=== PATIENT | male | born 1940 | race Caucasian/White ===

== ENCOUNTER → 2024-02-27 12:41 | Outpatient (REF) | payer OTHER, SELFPAY | LOC: RAD 12:41 | PROVIDERS: ATTENDING PHYSICIAN Surgery Vascular Surgery; FAMILY PHYSICIAN Family Medicine | DX: I65.23 Occlusion and stenosis of bilateral carotid arteries (principal); I77.1 Stricture of artery | CPT/HCPCS: 93880 ==

== ENCOUNTER → 2024-05-25 11:05 | Outpatient (REF) | payer OTHER, SELFPAY | LOC: DHCBC/DCA 11:05 | PROVIDERS: ATTENDING PHYSICIAN Internal Medicine; FAMILY PHYSICIAN Family Medicine | DX: Z01.810 Encounter for preprocedural cardiovascular examination (principal); I65.23 Occlusion and stenosis of bilateral carotid arteries; I25.10 Atherosclerotic heart disease of native coronary artery without angina pectoris; I45.10 Unspecified right bundle-branch block; R07.89 Other chest pain | CPT/HCPCS: 78452; 93017; A9500 ==

== ENCOUNTER → 2024-05-28 08:11 | Outpatient (REF) | payer OTHER, SELFPAY | LOC: RCS 08:11 | PROVIDERS: ATTENDING PHYSICIAN Internal Medicine; FAMILY PHYSICIAN Family Medicine | DX: Z01.810 Encounter for preprocedural cardiovascular examination (principal); I65.23 Occlusion and stenosis of bilateral carotid arteries; I25.10 Atherosclerotic heart disease of native coronary artery without angina pectoris; I45.10 Unspecified right bundle-branch block; R07.89 Other chest pain | CPT/HCPCS: 93306 ==

== ENCOUNTER 2024-06-02 06:17 | Inpatient (IN) | payer OTHER, SELFPAY ==
[2024-05-28 10:55] LABS: % Basophils 0.7 % (0-2); % Eosinophils 3.3 % (0-6); % Immature Granulocytes 0.3 % (0-0.5); % Lymphocytes 21.7 % (20.5-51.1); % Monocytes 6.8 % (1.7-9.3); % Neutrophils 67.2 % (42.2-75.2); Absolute Eosinophils 0.2 10^3/uL (0-0.7); Absolute Lymphocytes 1.3 10^3/uL (1.2-3.4); Absolute Monocytes 0.4 10^3/uL (0.1-0.6); Absolute Neutrophils 3.9 10^3/uL (1.4-6.5); Hematocrit 37.3 % (39.0-52.0); Hemoglobin 12.7 g/dL (13.0-18.0); Mean Corpuscular Hgb 30.9 pg (27.0-31.0); Mean Corpuscular Volume 90.8 fL (80.0-94.0); Mean Platelet Volume 9.3 fL (7.4-10.4); Nucleated Red Blood Cells % 0 % (-); Platelet Count 209 10^3/uL (130-400); Red Blood Cell Count 4.11 10^6/uL (4.70-6.10); Red Cell Dist. Width 13.2 % (11.5-14.5); White Blood Cell Count 5.8 10^3/uL (4.8-10.8)
[2024-05-28 11:11] LABS: Blood Urea Nitrogen 25 mg/dl (9-20); Calcium 9.6 mg/dl (8.4-10.2); Carbon Dioxide 28 mmol/L (22-30); Chloride 103 mmol/L (98-107); Glucose 96 mg/dl (70-99); Potassium 4.6 mmol/L (3.5-5.1); Sodium 141 mmol/L (135-145); eGFR > 60.00
[2024-05-28 11:12] LABS: INR 0.99; PT 12.9 Sec (11.4-14.6)
[2024-05-28 11:13] LABS: APTT 29.3 Sec (23.4-35.0)
[2024-06-02] VITALS (10 sets, daily range): BP systolic 81–180; BP diastolic 68–73; BMI 29.1
[2024-06-02] MEDS: BACTROBAN NASAL 1 GRAM NASAL (06:53)
[2024-06-02] MEDS: NSS 500 IV (06:53)
[2024-06-02] MEDS: PERIDEX 0.12% ORAL RINSE 15 ML PO (06:53)
--- NOTE | 2024-06-02 07:13 | W.SUR.PREOP ---
Pre-Operative Surgical Note
-
I have examined this patient prior to the performance of the scheduled procedure.
The patient's condition is unchanged from the time of the current History and
Physical and the patient is able to undergo the scheduled procedure.
--- NOTE | 2024-06-02 10:04 | W.SUR.POST ---
Surgical Immediate Post Op
Note
Pre Op Diagnosis: Carotid stenosis
Post Op Diagnosis: Same
Procedure Performed: Left carotid endarterectomy with bovine pericardial patch angioplasty and EEG monitoring
Primary Surgeon: Mauro SCHWARTZ
Secondary Surgeons: Tarun MANRIQUE
Anesthesia: General
Estimated Blood Loss:
Fluids: See anesthesia flowsheet
Drains/Shunts: None
Specimens/Cultures: Carotid plaque
Doppler/Duplex/Angio (Y/N): Y
Complications: None
Operative Findings: Woke from anesthesia moving all extremities
--- NOTE | 2024-06-02 10:28 | CON.INTV ---
Consultation
Consultation Request
Date/Time Consultation Requested: 06/02/2024952
Date/Time Consultation Performed: 06/02/2024 - 101
Requesting Provider: BURTON Armas
Performing Provider: Juancarlos Canales MD
Reason for Consultation: s/p L-CEA
Medical History
-
Chief Complaint: Elective left CEA
History of Present Illness:
83-year-old male former tobacco smoker with a past medical history of bilateral carotid artery stenosis, adenomatous colonic polyps, ophthalmic migraines, hyperlipidemia, impaired fasting glucose, GERD, Peyronie's disease, left knee osteoarthritis
and spinal stenosis who presents with left carotid endarterectomy. Patient known to vascular surgery service with last visit on 04/20/[address] Wade. Patient has extensive atherosclerotic plaque burden throughout his aortic arch great vessels
with left subclavian stenosis. There is 90% stenosis in the left internal carotid at the distal bulb. Surgical revascularization was discussed and he was recommended for a left carotid endarterectomy. Risks and benefits of vascular intervention
were discussed, and today he underwent a left carotid endarterectomy with bovine pericardial patch angioplasty with intraoperative EEG/SSEP monitoring. There were no immediate complications and he was transferred to the ICU for further care.
Epidemiology Internship services consulted for additional management/recommendations.
When I saw the patient, he was resting in bed in no acute distress. Heart rate 81, BP via right radial A-line: 129/59, saturating 95% on 2 L/min, and BP via NIBP: 81/68. He feels well, has no complaints. Denies shortness of breath, chest pain,
ROMERO, abdominal pain, nausea, fevers or chills.
PMHx: Bilateral carotid artery stenosis, history of adenomatous colon polyps, diverticulosis, ophthalmic migraines, hyperlipidemia, nephrolithiasis, impaired fasting glucose, GERD, Peyronie's disease, left knee OA, spinal stenosis, history of
fractured ribs x2 (left )
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
Past Medical History
Past Medical History: Other (Above as per HPI)
Past Surgical History: Other (Above as per HPI)
Social History
Tobacco: Former Smoker (Quit in September 1999; prior 1-2 PPD x 15 years (total and he quit for a period of time))
Alcohol: Occasional
Drug: None
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
Family History
Family History: CAD (Father) and Other (Mother: Glaucoma)
Allergies / Home Medications
Allergies
Allergy/AdvReac Type Severity Reaction Status Date / Time
bupropion Allergy Mild Rash Verified 06/02/24 06:31
nicotine Allergy Mild Rash Verified 06/02/24 06:31
Home Medications
�Medication �Instructions �Recorded �Confirmed �Last Taken �Type
aspirin 81 mg tablet,delayed 81 mg PO DAILY Blood clot 03/26/20 06/02/24 06/01/24 10:30 History
release prevention/tx
rosuvastatin 40 mg tablet (Crestor) 40 mg PO DAILY High cholesterol 03/26/20 06/02/24 06/01/24 10:30 History
acetaminophen 500 mg tablet 500 mg PO Q4HPRN PRN pain 04/06/20 06/02/24 05/31/24 23:00 History
(Tylenol Extra Strength)
diclofenac sodium 50 mg 50 mg PO BID PRN PAIN 05/26/24 06/02/24 06/01/24 10:30 History
tablet,delayed release
icosapent ethyl 1 gram capsule 2 g PO DAILY High Cholesterol 05/26/24 06/02/24 06/01/24 10:30 History
(Vascepa)
valsartan 320 mg tablet 320 mg PO DAILY High Cholesterol 05/26/24 06/02/24 06/01/24 10:30 History
Review of Systems
-
History Source: Patient
All other systems: Negative unless noted
Vitals / Labs / Diagnostic Testing
Vital Signs
Temp Pulse Resp BP Pulse Ox
97.8 F 68 14 103/71 95
06/02/24 12:10 06/02/24 15:15 06/02/24 15:15 06/02/24 13:31 06/02/24 15:15
Lab Data
06/02/24 11:22
06/02/24 11:22
Laboratory Results
06/02/24
11:22
PT 13.6
INR 1.03
APTT 25.9
Diagnostic Testing:
Physical Exam
-
HEENT: Normocephalic and Anicteric
Cardiovascular: S1/S2, Murmur (LURDES, heard best at RUSB with radiation to carotid) and Peripheral Edema (negative)
Respiratory: Clear, Wheeze (negative), Rales (negative), Rhonchi (negative) and Non-Labored Respirations
GI: Soft, Non Distended, Non Tender and Normal Bowel Sounds
Neurology: AO x 3 and Tremors (negative)
Skin: Warm and Dry
General: Respiratory Distress (negative), Comfortable, Chills (negative) and Sweats (negative)
Assessment
-
Assessment: 83-year-old male former tobacco smoker with a past medical history of bilateral carotid artery stenosis, adenomatous colonic polyps, ophthalmic migraines, hyperlipidemia, impaired fasting glucose, GERD, Peyronie's disease, left knee
osteoarthritis and spinal stenosis who presents with left carotid endarterectomy. Patient known to vascular surgery service with last visit on 04/20/[address] Wade. Patient has extensive atherosclerotic plaque burden throughout his aortic arch
great vessels with left subclavian stenosis. There is 90% stenosis in the left internal carotid at the distal bulb. Surgical revascularization was discussed and he was recommended for a left carotid endarterectomy. Risks and benefits of vascular
intervention were discussed, and 06/02/2024 he underwent a left carotid endarterectomy with bovine pericardial patch angioplasty with intraoperative EEG/SSEP monitoring. There were no immediate complications and he was transferred to the ICU for
further care. Epidemiology Internship services consulted for additional management/recommendations.
Chronic conditions [employer]: Bilateral carotid artery stenosis, history of adenomatous colon polyps, diverticulosis, ophthalmic migraines, hyperlipidemia, nephrolithiasis, impaired fasting glucose, GERD, Peyronie's disease, left knee OA, spinal stenosis,
history of fractured ribs x2 (left )
Impression:
#Critical left carotid artery stenosis s/p left carotid endarterectomy with bovine pericardial patch angioplasty and intraoperative EEG/SSEP monitoring (POD #0)
#Leukocytosis � likely reactive
#Chronic anemia
#Former tobacco smoker (quit about >24 years ago with >[id number] Hx)
Plan:
Postoperative surgical intensive care unit monitoring
Supplemental oxygen as needed to maintain SpO2 >90-94%
prn nebulized bronchodilators
Incentive spirometry encouraged 10x per hour for at least 4 hrs a day
Aspiration precautions
Pain control
Neuro and vascular checks per protocol
Maintain MAP>65
Replete electrolytes with K>4, Mg>2
Maintain euglycemia with goal BG 140-180
Vascular surgery following-correspondence and operative notes reviewed
Transfuse blood products as needed to keep Hb>7g/dL, and plt>50k (given post-operative status)
DVT prophylaxis
Early nutrition
Early mobilization
Critical care statement: A total of 44 minutes of critical care time was provided for this patient today. This includes management of unstable vital signs, evaluation of the patient at bedside, reviewing the patient's pertinent medical records
including radiographs, microbiology, laboratory evaluations, and discussion with primary team, consultants, pharmacy, nutrition, physical therapy, case management, charge nurse, critical care nursing, and respiratory therapy.
--- NOTE | 2024-06-02 11:15 | OR.RPT ---
Operative Report
Operative Report
PROCEDURE DATE: 06/02/2024
Preoperative diagnosis: Critical left carotid artery stenosis, asymptomatic.
Postoperative diagnosis: Same
Procedure: Left carotid endarterectomy with bovine pericardial patch angioplasty and intraoperative EEG/SSEP monitoring.
Surgeon: Mauro
Shrinker: Tangela Mcneil STONE CARRIAGE OPERATOR, required for all aspects of procedure including assistance with traction/countertraction, following a suture line, assistance with closure.
Complications: None
Anesthesia: General
Indications for procedure:
Critical left carotid artery stenosis. Asymptomatic. Severe elevated velocities on ultrasound. Recommended revascularization for stroke prevention. Risk/benefits/alternatives all fully discussed. Patient understood all wish to proceed.
Description of procedure:
Patient was identified brought to the operating room placed on the table in supine position. After the adequate administration of anesthesia and perioperative antibiotics he was prepped and draped in the standard surgical fashion. A standard
preoperative timeout was undertaken and everybody was in agreement the plan. A standard longitudinal incision was made in the left neck that was carried through the skin subcutaneous tissue. Using the electrocautery dissection was carried through
the platysma muscle layer and then alongside the anterior medial border of the sternocleidomastoid muscle. Then using a combination of sharp dissection with the Metzenbaum scissors and electrocautery I dissected along the anterior medial border of
the internal jugular vein. The common facial vein branch was ligated between silk ties and then divided. An additional smaller proximal crossing venous branch was ligated and divided between silk ties. I then deepened my retraction. The common
carotid artery was identified and carefully dissected away from the surrounding structures take great care to avoid any injury to the structures. A vessel loop was passed around it which was double looped, but not yet tightened. Note the vagus
nerve was seen in its usual location posterior lateral to the common carotid artery, and was protected from harm's way. I then continued my dissection up the common carotid artery to the bulb staying only on the anterior surface of the carotid
artery. Then I carried the dissection up to the internal carotid artery and then to the distal internal carotid artery. Notes, based on the CT scan I knew I had to dissect at least 2.5 to 3 cm distal to the origin of the internal carotid artery
due to significant plaque that extended up. I finally identified where it was soft and carefully circumferentially dissected the internal carotid artery with minimal mobilization and passed a vessel loop around it at this location. Note the
hypoglossal nerve was preserved from harm's way. The patient was given an appropriate dose of heparin 8000 units (and then an additional 1000 units was given). Next I dissected the anterior surface of the external carotid artery and superior
thyroid branches. These were then carefully circumferentially dissected with minimal mobilization and vessel loops passed around these which were double looped but not yet tightened. After 3 minutes of heparin circulation time and confirmation of
optimization of the blood pressure with my anesthesiology colleagues, I clamped the distal internal carotid artery where it was soft. There was no immediate EEG or SSEP changes. After 1 minute of test clamp time there was no changes noted.
Therefore at this point, the vessel loops on the external carotid artery and superior thyroid branches were tightened and the common carotid artery was clamped where it was soft proximally. An arteriotomy was made on the common carotid artery with
an 11 blade and extended using a [place] scissor. I extended the arteriotomy onto the mid to distal internal carotid artery. There was hard calcified, but friable type plaque extensively noted at the bifurcation extending onto the internal carotid
artery for a couple centimeters. It resulted in a severe stenosis. A [place] was then used to endarterectomized the plaque. An endarterectomy plane was created, and the plaque was then endarterectomized. Distally I feathered the plaque out to a
nice clean endpoint in the distal internal carotid artery. Next I endarterectomized the intima back to normal intima in the common carotid artery, and the intima was cut flush there. I then grasped the plaque and everted plaque out of the origin
of the external carotid artery. The plaque was then sent off for specimen. The origin of the external carotid artery was carefully visualized and any fine debris were removed with fine forceps. Proximal and distal endpoints were then carefully
inspected. Any fine debris was removed with fine forceps, and the intima was noted to be nicely adherent proximally and distally. Next any fine debris were removed throughout the endarterectomy bed with fine forceps. Three interrupted 7-0 Prolene
tacking sutures were placed to tack the distal endpoint (one on the anterior wall, and 2 posteriorly). I then flushed heparinized saline. I was very satisfied. Then, I used a bovine pericardial patch to sew a patch angioplasty with a running 6-0
Prolene suture. Prior to completing and tying down my suture line, I backbled sequentially each branch and reclamped each branch prior to unclamping the next branch. I then irrigated with heparinized saline. Then I completed and tied down my
suture line. We then restored flow in the common carotid and external carotid arteries. Finally, we released flow in the internal carotid artery. There was excellent pulsatile flow in all 3 vessels. There was an excellent Doppler signal in the
internal carotid artery distal to the patch with a good normal low resistance Doppler signal. There was a good Doppler signal in the external carotid artery as well. A couple 6-0 Prolene [id number] sutures were placed along any bleeding points
along the suture line. Protamine was given to reverse the heparin. Hemostasis was completely achieved. We then irrigated and confirmed full hemostasis. We then closed in layers with 2-0 Vicryl layer to reapproximate the sternocleidomastoid
muscle, followed by 3-0 Vicryl platysma muscle running layer, followed by 4-0 Monocryl subcuticular stitch. Dermabond was applied. The patient tolerated procedure well. He awoke moving all extremities to command with tongue in the midline.
[2024-06-02 11:35] LABS: Hematocrit 33.5 % (39.0-52.0); Hemoglobin 11.6 g/dL (13.0-18.0); Mean Corp Hgb Conc. 34.6 g/dL (33.0-37.0); Mean Corpuscular Hgb 29.7 pg (27.0-31.0); Mean Corpuscular Volume 85.7 fL (80.0-94.0); Mean Platelet Volume 8.6 fL (7.4-10.4); Platelet Count 169 10^3/uL (130-400); Red Blood Cell Count 3.91 10^6/uL (4.70-6.10); Red Cell Dist. Width 13.2 % (11.5-14.5); White Blood Cell Count 11.7 10^3/uL (4.8-10.8)
[2024-06-02 11:46] LABS: INR 1.03; PT 13.6 Sec (11.4-14.6)
[2024-06-02 11:47] LABS: APTT 25.9 Sec (23.4-35.0)
[2024-06-02 11:50] LABS: Blood Urea Nitrogen 23 mg/dl (9-20); Calcium 8.6 mg/dl (8.4-10.2); Carbon Dioxide 25 mmol/L (22-30); Chloride 102 mmol/L (98-107); Estimated Creatinine Clearance 48 ml/min; Glucose 146 mg/dl (70-99); Potassium 4.1 mmol/L (3.5-5.1); Sodium 137 mmol/L (135-145); eGFR > 60.00
[2024-06-02] MEDS: NSS 1000 IV (13:08)
[2024-06-02] MEDS: NITROGLYCERIN PREMIX 250 IV (13:09)
--- NOTE | 2024-06-02 13:30 | PTCARENOTE ---
Pt arrived to Rm 3365 at 1235 via bed from PACU s/p Lt CEA. Pt awake and talkative on arrival. Tongue midline, smile symmetrical, landscape painter equal and strong. Communicating and following all commands appropriately. Received on O2 at 2l/min w/ POx 94-96%.
Denies SOB. Reports 2/ Lt neck 'ache', declining offered prn ordered pain med. Lt neck incision noted; well approximated w/ surgical adhesive present. No swelling or ecchymosis noted. Ice pack x 20min per order. Rt radial [place] transduced, leveled
and zero-balanced. IVF of NS started infusing at 80ml/hr per order. PT's SBP in 170-180's. Nitro gtt started per order (see worklist intervention) to maintain SBP 100-165. Physical assessment completed as documented. Pt provided w/ clear liquids.
Using urinal independently to void. Pt's in room to visit- updated on pt's present condition and plan of care. Pt's clergy in room to visit.
--- NOTE | 2024-06-02 13:41 | CHAP ---
Msgr. Ministerio Badillo of [facility] in [place] anointed [place], gave him an [place], and Holy Communion.
[2024-06-02] MEDS: ROXICODONE 5 MG PO (14:48)
--- NOTE | 2024-06-02 15:37 | PTCARENOTE ---
Pt continues to rest quietly although reports increase in discomfort from Lt neck incision. No change in appearance of incision. Ice pack applied x20 min and pt provided ordered Oxycodone at request (see MAR). Pt tolerating clear liquids w/o
complication. Diet advanced to Chol. lowering and pt assisted in ordering lunch. No additional changes from previous assessment findings. Ntg gtt per worklist intervention. went home for the afternoon.
[2024-06-02] MEDS: HEPARIN 5000 UNITS SC ×2 (16:00→23:16)
--- NOTE | 2024-06-02 16:29 | PTCARENOTE ---
Pt sat up in bed to eat ordered lunch and visit w/ friend- SBP 180-200's w/ adjustment made to Ntg gtt (see worklist intervention) to keep SBP <165. Pt reports 'feel quite comfortable' since previously administered Oxycodone. Neuro unchanged. TT to
Dez KHANNP re: increased Ntg requirement to attempt to keep SBP <165. Dez KHANNP and Tatyana MANRIQUE to bedside to evaluate pt. Order for Cardene gtt received. Pt's daughter in room to visit pt.
[2024-06-02] MEDS: CARDENE 200 IV (16:38)
--- NOTE | 2024-06-02 22:58 | PTCARENOTE ---
1999: Handoff report received from off going RN.Dual RN neuro checks and gtt reconciliation completed. Assessment as noted on the worklist.Patient received on cardene gtt at 5 mg/hr and NS @ 80 ml/hr. Right radial arterial line flushed and
calibrated. SBP 95-97. Cardene gtt placed on hold and SBP improved to 110-140s. Patient is AAOx4 and able to make his needs known. Denies pain at this time. Plan of care for the shift reviewed with the patient. questions encouraged and answered.
The patient had concerns regarding is oxygenation. Sinus rhythm on the monitor with 1st degree AVB and BBB. Afebrile. Clear breath sounds. Sp2 at 95% on 2L/nc. +BS. Patient at 95% of his dinner tray. The patient voids via urinal. Declines mouth care
at this time. PT repositions himself.
[2024-06-02] MEDS: TYLENOL 650 MG PO (23:15)
[2024-06-03] VITALS: BP 99/80
[2024-06-03] MEDS: NSS 1000 IV (00:12)
--- NOTE | 2024-06-03 00:19 | PTCARENOTE ---
Patient reassessed. Remains AAOx4 and able to make his needs known. Pain 0/10 since Tylenol administration. Neuro assessment as document. Left CEA site is cdi with surgical glue. No hematoma. Mild bruising. Cardene gtt remains off at this time. All
needs are met. Call yoon and personal belonging are within reach.
--- NOTE | 2024-06-03 02:27 | PTCARENOTE ---
The patient utilized the urinal to void and his SBP increased to the 180s. Pt repositioned and arterial line calibrated with good waveform. The patient denied having pain. Cardene gtt restarted at 2.5 mg/hr.
[2024-06-03 04:00] VITALS: BP 96/66
[2024-06-03 04:19] VITALS: BP 104/71
[2024-06-03 04:19] LABS: Hematocrit 33.7 % (39.0-52.0); Hemoglobin 11.5 g/dL (13.0-18.0); Mean Corp Hgb Conc. 34.1 g/dL (33.0-37.0); Mean Corpuscular Hgb 30.7 pg (27.0-31.0); Mean Corpuscular Volume 89.9 fL (80.0-94.0); Platelet Count 179 10^3/uL (130-400); Red Blood Cell Count 3.75 10^6/uL (4.70-6.10); Red Cell Dist. Width 12.8 % (11.5-14.5); White Blood Cell Count 10.4 10^3/uL (4.8-10.8)
[2024-06-03 04:29] LABS: INR 0.98
[2024-06-03 04:30] LABS: APTT 24.3 Sec (23.4-35.0)
[2024-06-03 04:44] LABS: Blood Urea Nitrogen 21 mg/dl (9-20); Calcium 8.8 mg/dl (8.4-10.2); Carbon Dioxide 23 mmol/L (22-30); Chloride 105 mmol/L (98-107); Estimated Creatinine Clearance 48 ml/min; Glucose 131 mg/dl (70-99); Potassium 4.4 mmol/L (3.5-5.1); Sodium 138 mmol/L (135-145); eGFR > 60.00
--- NOTE | 2024-06-03 04:50 | PTCARENOTE ---
Patient reassessed. neuro assessment as [place]. Denies pain. VSS. Patient cleansed with CHG wipes and pads changed. No further changes.
[2024-06-03 06:00] VITALS: BMI 29.9
[2024-06-03] MEDS: CARDENE 200 IV (06:33)
[2024-06-03] MEDS: ASPIR LOW (ENTERIC COATED) 81 MG PO (07:39)
[2024-06-03] MEDS: DIOVAN 320 MG PO (07:39)
[2024-06-03] MEDS: CRESTOR 40 MG PO (07:39)
[2024-06-03] MEDS: HEPARIN 5000 UNITS SC (07:39)
--- NOTE | 2024-06-03 07:56 | W.PN.VS ---
Today's Communication / Plan
-
Seen and assessed with Dr Wade
Assessment/Plan
-
POD 1 L CEA
Plan:
-DC mary jane
-DC IVF
-PO meds
-Diet
-OOB/ambulate
-Likely DC later today
Subjective Data
-
Date of Service: June 03, 2024
Pt seen at bedside this am with Dr Wade. Pt offers no complaints at this time. No events overnight. Cardene being weaned down at this time.
Objective Data
-
Vital Signs
Temp Pulse Resp BP Pulse Ox
97.7 F 67 16 140/58 96
06/03/24 07:46 06/03/24 07:45 06/03/24 07:45 06/03/24 07:39 06/03/24 07:45
Intake and Output
06/02/24 06/03/24 06/04/24
06:59 06:59 06:59
Intake Total 3426.0 / 3531.0 105 / 105
Output Total 2730 / 3030 300 / 300
Balance 696.0 / 501.0 -195 / -195
Intake:
Oral fluids 1680 / 1680
IV fluids (Total) 1746.0 / 1851.0 105 / 105
Cardene 177.5 / 202.5 25 / 25
NSS 1540 / 1620 80 / 80
Nitro 28.5 / 28.5
Output:
Urine, Voided 2730 / 3030 300 / 300
Lab Results
06/03/24 04:02
06/03/24 04:02
Calcium 8.8 mg/dl (8.4-10.2) 06/03/24 04:02
Physical Exam
-
AAOx3
No tachypnea on RA
No tachycardia
Abd soft
Neck site c/d/i, no hematoma or drainage noted
Moves all extremities to command
Tongue midline
--- NOTE | 2024-06-03 08:10 | W.PN.INTV ---
Today's Communication / Plan
Recommendations
Up OOB as tolerated
Pain control
Encourage incentive spirometer
Goal SpO2 >90-94%
Continue with outpatient follow-up with vascular surgery and his PCP
Patient is being prepared for discharge home today. Professor Of Legal Studies/Pulmonary service will now sign off. Please reconsult if there are any additional questions/concerns, or if patient's respiratory status deteriorates.
Assessment
-
Assessment: 83-year-old male former tobacco smoker with a past medical history of bilateral carotid artery stenosis, adenomatous colonic polyps, ophthalmic migraines, hyperlipidemia, impaired fasting glucose, GERD, Peyronie's disease, left knee
osteoarthritis and spinal stenosis who presents with left carotid endarterectomy. Patient known to vascular surgery service with last visit on 04/20/[address] Wade. Patient has extensive atherosclerotic plaque burden throughout his aortic arch
great vessels with left subclavian stenosis. There is 90% stenosis in the left internal carotid at the distal bulb. Surgical revascularization was discussed and he was recommended for a left carotid endarterectomy. Risks and benefits of vascular
intervention were discussed, and 06/02/2024 he underwent a left carotid endarterectomy with bovine pericardial patch angioplasty with intraoperative EEG/SSEP monitoring. There were no immediate complications and he was transferred to the ICU for
further care. Professor Of Legal Studies services consulted for additional management/recommendations.
Chronic conditions CLINICAL PHARMACIST: Bilateral carotid artery stenosis, history of adenomatous colon polyps, diverticulosis, ophthalmic migraines, hyperlipidemia, nephrolithiasis, impaired fasting glucose, GERD, Peyronie's disease, left knee OA, spinal stenosis,
history of fractured ribs x2 (left )
Impression:
#Critical left carotid artery stenosis s/p left carotid endarterectomy with bovine pericardial patch angioplasty and intraoperative EEG/SSEP monitoring (POD #1)
#Leukocytosis � likely reactive and is now resolved
#Chronic anemia
#Former tobacco smoker (quit about >24 years ago with >[id number] [id number])
Plan:
Postoperative surgical intensive care unit monitoring
Maintain SpO2 >90-94%
prn nebulized bronchodilators
Incentive spirometry encouraged 10x per hour for at least 4 hrs a day
Aspiration precautions
Pain control
Neuro and vascular checks per protocol
Maintain MAP>65
Replete electrolytes with K>4, Mg>2
Maintain euglycemia with goal BG 140-180
Vascular surgery following-correspondence and operative notes reviewed
Transfuse blood products as needed to keep Hb>7g/dL, and plt>50k (given post-operative status)
DVT prophylaxis
Early nutrition
Early mobilization
Patient is being prepared for discharge home today. Professor Of Legal Studies/Pulmonary service will now sign off. Thank you for allowing us to be involved in the care of this patient. Please reconsult if there are any additional questions/concerns, or if
patient's respiratory status deteriorates.
Total time spent today was 41 minutes for this encounter. Time includes reviewing laboratory test/imaging results, reviewing pertinent medical records, obtaining and reviewing medical history, performing an appropriate exam, ordering medications,
tests and procedures. Time also includes documentation of this encounter, coordinating patient care and communicating with other healthcare professionals. Total time does not include separately billed tests performed on this date of service.
Subjective Dataa
Subjective Data
Date of Service:
Date of Service: June 03, 2024
Chief Complaint: Professor Of Legal Studies Follow Up
Subjective:
Patient seen and evaluated this morning. On room air breathing comfortably saturating 94%, heart rate 66 and BP 105/85. No SOB, ROMERO, chest pain, fevers or chills. Being prepared for discharge home today.
Review of Systems
General: Other (Negative unless mentioned above)
Objective Data
Data Reviewed
Vital Signs / I&O / Oxygen:
Vital Signs
Temp Pulse Resp BP Pulse Ox
97.7 F 67 16 140/58 96
06/03/24 07:46 06/03/24 07:45 06/03/24 07:45 06/03/24 07:39 06/03/24 07:45
Intake and Output
06/02/24 06/03/24 06/04/24
06:59 06:59 06:59
Intake Total 3426.0 / 3531.0 557.5 / 557.5
Output Total 2730 / 3030 575 / 575
Balance 696.0 / 501.0 -17.5 / -17.5
SaO2 96
Nasal Cannula flow liters per 2
minute
Physical Exam
General: Respiratory Distress (negative), Comfortable, Chills (negative) and Sweats (negative)
HEENT: Normocephalic and Anicteric
Cardiovascular: S1-S2 and Peripheral Edema (negative)
Respiratory: Clear, Wheeze (negative), Crackles (negative), Rhonchi (negative) and Non-Labored Respirations
GI: Soft, Non Distended, Non Tender and Normal Bowel Sounds
Neurology: AO x 3 and Tremors (negative)
Skin: Warm, Dry, Cyanosis (negative) and Jaundice (negative)
Labs/Micro/Reports
Lab Data
06/03/24 04:02
06/03/24 04:02
Laboratory Results
06/02/24 06/03/24
11:22 04:02
PT 13.6 13.0
INR 1.03 0.98
APTT 25.9 24.3
[2024-06-03 09:16] VITALS: BP 96/72
--- NOTE | 2024-06-03 09:31 | PTCARENOTE ---
Assumed care of pt from car shifter RN. AAOx3. NSR on cardiac cath lab manager. Weaned from 2L nasal cannula to room air, SpO2 95% on room air. VSS. Received pt on Cardene gtt at 5mg/hr. Weaned to 2.5mg/hr and than discontinued by vascular this morning. IVF
also discontinued. R radial mary jane removed per order. Dressing CDI. L neck incision approximated & JEFFERSON with surgical adhesive present. Neurovascular checks WDL. B/L radial and B/L dorsalis pedis pulses palpable. Pt resting in bed, call yoon in reach.
Plan for possible discharge today.
[2024-06-03 11:03] VITALS: BP 105/85
[2024-06-03 12:00] VITALS: BP 113/65
--- NOTE | 2024-06-03 12:06 | W.DS.TRANS ---
DC Summary - [employer]
-
Discharge Instructions:
Discharge Diagnosis/Procedures Left carotid endarterectomy
Diet As tolerated
Activity No strenuous activity
Driving Restrictions Not until seen by your Dr
Bathing Restrictions OK to Shower
Instructions:
Stand-Alone Forms: DC Instr - Vascular OR
Changes to Home Medications: No
Discharge Medications:
DC Medications w/original date entered in [employer]
aspirin 81 mg tablet,delayed release 81 mg PO DAILY Blood clot prevention/tx 03/26/20
rosuvastatin 40 mg tablet (Crestor) 40 mg PO DAILY High cholesterol 03/26/20
acetaminophen 500 mg tablet (Tylenol Extra Strength) 500 mg PO Q4HPRN PRN pain 04/06/20
diclofenac sodium 50 mg tablet,delayed release 50 mg PO BID PRN PAIN 05/26/24
icosapent ethyl 1 gram capsule (Vascepa) 2 g PO DAILY High Cholesterol 05/26/24
valsartan 320 mg tablet 320 mg PO DAILY High Cholesterol 05/26/24
Home Medication Changes
Pending Results: No
--- NOTE | 2024-06-03 12:10 | CM ---
CM following re: discharge planning.
Discussed in Rounds, reviewed pt's chart, met with pt.
Pt is an 83 year old male, admitted with primary dx of POD 1 L CEA. Per Vascular Surgery pt is doing well and will be discharged today. Discharge order noted. Pt is aware, expressed his agreement and he stated his spouse tis coming to transport hoe.
IMM reviewed, placed on chart, pt has a copy.
Pt reports he lives with spouse 2SH, 2 steps to enter, has 4 supportive children. 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 No DME, VN or SNF history.
PCP: Nitin Patel
Pharmacy: [facility].
D/C plan: home no needs. Spouse to transport.
--- NOTE | 2024-06-03 13:40 | PTCARENOTE ---
Discharge paperwork reviewed with pt and at bedside. Pt verbalized understanding of discharge instructions, follow-ups, wound care, activity restrictions, and medications. PIVs removed. Pt escorted to exit by volunteer via wheelchair. Transport
home provided by via private vehicle.
== END 2024-06-03 13:48 | disposition home or self-care (01) | DRG 39 ==
LOC: ICU 06:17
PROVIDERS: Nurse Practitioner Acute Care; ADMITTING PHYSICIAN Surgery Vascular Surgery; CONSULT PHYSICIAN Internal Medicine Critical Care Medicine; FAMILY PHYSICIAN Family Medicine
PROC: 03UL0KZ Supplement Left Internal Carotid Artery with Nonautologous Tissue Substitute, Open Approach (ICD-10-PCS; 2024-06-02)
PROC: 03CJ0ZZ Extirpation of Matter from Left Common Carotid Artery, Open Approach (ICD-10-PCS; 2024-06-02)
DX: I65.23 Occlusion and stenosis of bilateral carotid arteries (principal); D64.9 Anemia, unspecified; I70.8 Atherosclerosis of other arteries; E78.00 Pure hypercholesterolemia, unspecified; M17.12 Unilateral primary osteoarthritis, left knee; K21.9 Gastro-esophageal reflux disease without esophagitis; M48.00 Spinal stenosis, site unspecified; N48.6 Induration penis plastica; K57.90 Diverticulosis of intestine, part unspecified, without perforation or abscess without bleeding; D72.829 Elevated white blood cell count, unspecified; Z79.82 Long term (current) use of aspirin; Z79.899 Other long term (current) drug therapy; Z87.891 Personal history of nicotine dependence; Z86.0101 Personal history of adenomatous and serrated colon polyps; Z87.442 Personal history of urinary calculi; Z87.81 Personal history of (healed) traumatic fracture; Z85.820 Personal history of malignant melanoma of skin; Z85.828 Personal history of other malignant neoplasm of skin; Z82.49 Family history of ischemic heart disease and other diseases of the circulatory system; Z88.8 Allergy status to other drugs, medicaments and biological substances
CPT/HCPCS: 88304; 88311; 35301; 36415; 71046; 80048; 85025; 85027; 85610; 85730; 86850; 86900; 86901; 95938; 95941; 95955

== ENCOUNTER → 2024-07-06 09:39 | Outpatient (REF) | payer OTHER, SELFPAY | LOC: RAD 09:39 | PROVIDERS: ATTENDING PHYSICIAN Physician Assistant; FAMILY PHYSICIAN Family Medicine | DX: I77.1 Stricture of artery (principal); I65.23 Occlusion and stenosis of bilateral carotid arteries | CPT/HCPCS: 93880; 93923; 93930 ==

== ENCOUNTER → 2025-01-18 09:51 | Outpatient (REF) | payer OTHER, SELFPAY | LOC: DHVS 09:51 | PROVIDERS: ATTENDING PHYSICIAN Surgery Vascular Surgery; FAMILY PHYSICIAN Family Medicine | DX: I65.23 Occlusion and stenosis of bilateral carotid arteries (principal) | CPT/HCPCS: 93880 ==

== ENCOUNTER → 2025-03-25 08:16 | Outpatient (REF) | payer OTHER, SELFPAY | LOC: RAD 08:16 | PROVIDERS: ATTENDING PHYSICIAN Family Medicine | DX: R01.1 Cardiac murmur, unspecified (principal); N32.81 Overactive bladder | CPT/HCPCS: 76770; 93306 ==

== ENCOUNTER → 2025-06-03 11:48 | Outpatient (REF) | payer OTHER, SELFPAY | LOC: RAD 11:48 | PROVIDERS: ATTENDING PHYSICIAN Family Medicine | DX: R07.89 Other chest pain (principal); M54.6 Pain in thoracic spine | CPT/HCPCS: 71101; 72072 ==

== ENCOUNTER → 2025-06-09 08:02 | Outpatient (REF) | payer OTHER, SELFPAY | LOC: RAD 08:02 | PROVIDERS: ATTENDING PHYSICIAN Surgery Vascular Surgery; FAMILY PHYSICIAN Family Medicine | DX: I70.8 Atherosclerosis of other arteries (principal) | CPT/HCPCS: 93922; 93978 ==

== ENCOUNTER → 2025-07-20 08:27 | Outpatient (REF) | payer OTHER, SELFPAY | LOC: RAD 08:27 | PROVIDERS: ATTENDING PHYSICIAN Registered Nurse; FAMILY PHYSICIAN Family Medicine | DX: I77.1 Stricture of artery (principal); I65.23 Occlusion and stenosis of bilateral carotid arteries | CPT/HCPCS: 93880; 93923; 93930 ==